=== PATIENT | male | born 1985 | race Caucasian/White ===

== ENCOUNTER 2025-02-23 10:44 | Day surgery (SDC) | payer OTHER ==
[~2025-02-23] VITALS: Ht 167.6 cm; Wt 87.5 kg
[2025-02-23] MEDS ORDERED: WEGOVY1.7 MG/0.7 SQ (11:30)
[2025-02-23] MEDS ORDERED: Lidocaine HCl 4% 5 ML SDA ONE (12:34)
[2025-02-23] MEDS ORDERED: Benzocaine Oral Spray 0.5ML UD ONE (12:37)
== END 2025-02-23 14:10 | disposition home or self-care (01) ==
LOC: ORSCSDS 10:44
PROVIDERS: Specialist
PROC: 0DB98ZX Excision of Duodenum, Via Natural or Artificial Opening Endoscopic, Diagnostic (ICD-10-PCS; principal; 2025-02-23 12:15)
PROC: 0DBM8ZX Excision of Descending Colon, Via Natural or Artificial Opening Endoscopic, Diagnostic (ICD-10-PCS; principal; 2025-02-23 12:15)
PROC: 0DB78ZX Excision of Stomach, Pylorus, Via Natural or Artificial Opening Endoscopic, Diagnostic (ICD-10-PCS; principal; 2025-02-23 12:15)
PROC: 0DB58ZX Excision of Esophagus, Via Natural or Artificial Opening Endoscopic, Diagnostic (ICD-10-PCS; principal; 2025-02-23 12:15)
DX: R19.4 Change in bowel habit (principal); R10.84 Generalized abdominal pain; R11.2 Nausea with vomiting, unspecified; K29.70 Gastritis, unspecified, without bleeding; K21.9 Gastro-esophageal reflux disease without esophagitis; D12.4 Benign neoplasm of descending colon; K44.9 Diaphragmatic hernia without obstruction or gangrene; K64.8 Other hemorrhoids; J45.909 Unspecified asthma, uncomplicated; E66.9 Obesity, unspecified; Z68.31 Body mass index [BMI] 31.0-31.9, adult; Z79.85 Long-term (current) use of injectable non-insulin antidiabetic drugs; K76.0 Fatty (change of) liver, not elsewhere classified; R73.03 Prediabetes; G47.33 Obstructive sleep apnea (adult) (pediatric); Z79.899 Other long term (current) drug therapy
CPT/HCPCS: 88305; 88341; 88342; A9270; J2003; J2704; J7120